=== PATIENT | female | born 1960 | race Caucasian/White ===

== ENCOUNTER 2020-04-02 08:45 | Emergency (ER) | payer BC, SELFPAY ==
--- NOTE | ~2020-04-02 | XR_ITS ---
EXAMINATION: XR knee RT min 4V DATE: 04/02/2020 09:17 INDICATION: Right knee pain post fall down stairs TECHNIQUE: Anteroposterior, oblique, sunrise and crosstable lateral views of the right knee were obta ined COMPARISON: None. FINDINGS: Alignment is normal. No fracture. Joint spaces appear normal. No joint effusion/layering lipohemarth rosis. Soft tissues are unremarkable. IMPRESSION: 1. Negative right knee radiographs. Reviewed, dictated and finalized at location A.
[2020-04-02 08:51] VITALS: BP 143/79; PULSE 64; RESP 19; TEMP 36.5; O2SAT 100
--- NOTE | 2020-04-02 09:04 | PC.NURSE ---
Pt to XRAY via stretcher.
--- NOTE | 2020-04-02 09:53 | ED.GENADULT ---
HPI - General Adult General Chief complaint: Extremity Injury, Lower Stated complaint: knee injury Time Seen by Provider: 04/02/20 08:58 Source: patient Mode of arrival: ambulatory Limitations: no limitations History of Present Illness HPI narrative: 59-year-old with a history of hypertension here with complaints of right knee pain since last 2 days. Patient states that she fell near the swimming pool at her home 2 days ago ever since then been having pain in the right knee. She denies any other injuries. Onset (ago): day(s) (2) Location: right and lower extremity Radiation: non-radiation Severity: moderate Severity scale (1-10): 4 Quality: aching Relieving factors: rest Exacerbating factors: movement Associated symptoms: denies other symptoms Related Data Allergies Allergy/AdvReac Type Severity Reaction Status Date / Time No Known Allergies Allergy Unknown Verified 04/02/20 09:02 Review of Systems Review of Systems: All systems reviewed & are unremarkable except as noted in HPI and below Constitutional: Constitutional: Reports no additional constitutional complaints Eyes: Eyes: Reports no additional eye complaints ENT: Reports system reviewed and no additional complaints, except as documented Cardiovascular: Cardiovascular: Reports no additional cardiovascular complaints Respiratory: Respiratory: Reports no additional respiratory complaints Gastrointestinal: Gastrointestinal: Reports as per HPI Musculoskeletal: Musculoskeletal: Reports no additional musculoskeletal complaints PMFSH Past Medical History Medical History Diverticulitis large intestine Diverticulosis Fatty liver Hypothyroidism (acquired) Surgical History Surgical History H/O colonoscopy Family History Family History Father Family history of lung cancer Family history of rheumatoid arthritis Cerebrovascular accident Mother Family history of malignant neoplasm of breast in first degree relative Family history of thyroid disease Social History Social History (Updated 10/26/19 @ 14:10 by Corinna Rodrigues) Social History: Smoking status: Never smoker Second hand tobacco smoke exposure: No Alcohol intake: current Substance use: never Substance use type: does not use Gender identity (if verbalized by the patient): Female Exam Narrative: Exam Narrative: GENERAL: Well-appearing, well-nourished, and in no acute distress. HEAD: Normocephalic, atraumatic. EYES: PERRLA and EOMI. ENT: Nares clear, no rhinorrhea or epistaxis. Mucous membranes moist. NECK: Supple. CHEST: Clear to auscultation. No respiratory distress. HEART: Regular rate and rhythm. No murmur heard. Normal peripheral pulses.. EXTREMITIES: Normal range of motion. No edema. Tenderness in the medial aspect of the right knee. No joint effusion. SKIN: Warm, dry, no rash. NEURO: No focal deficits. Alert and oriented x3. PSYCH: Normal mood and affect. Course Course Emergency Course: Inform patient about her x-ray findings. Advised Raji wrap. Patient states that she did not want any pain medications recommended her to take ibuprofen or naproxen for pain. Vital Signs Vital signs: Vital Signs Temperature 36.5 C 04/02/20 08:51 Pulse Rate 64 04/02/20 08:51 Respiratory Rate 19 04/02/20 08:51 Blood Pressure 143/79 H 04/02/20 08:51 Pulse Oximetry 100 04/02/20 08:51 Temperature 36.5 C 04/02/20 08:51 Pulse Rate 64 04/02/20 08:51 Respiratory Rate 19 04/02/20 08:51 Blood Pressure 143/79 H 04/02/20 08:51 Pulse Oximetry 100 04/02/20 08:51 Medical Decision Making Vital Signs Vital Signs: Vital Signs Temperature 36.5 C 04/02/20 08:51 Pulse Rate 64 04/02/20 08:51 Respiratory Rate 19 04/02/20 08:51 Blood Pressure 143/79 H 04/02/20 08:51 Pulse Ox
[2020-04-02 10:23] VITALS: BP 148/86; PULSE 72; RESP 14; O2SAT 99
== END 2020-04-02 10:24 | disposition home or self-care (01) ==
PROVIDERS: Emergency Provider Family Medicine; PCP Family Medicine
DX: S83.91XA Sprain of unspecified site of right knee, initial encounter (principal); I10 Essential (primary) hypertension; K57.90 Diverticulosis of intestine, part unspecified, without perforation or abscess without bleeding; E03.9 Hypothyroidism, unspecified; W19.XXXA Unspecified fall, initial encounter
CPT/HCPCS: 73564; 99283

== ENCOUNTER 2021-01-26 07:25 | Outpatient (CLI) | payer BC, SELFPAY ==
--- NOTE | ~2021-01-26 | MM_ITS ---
EXAMINATION: MM screening amanda BI w tamara HISTORY: Screening TECHNIQUE: Craniocaudal and mediolateral oblique 3-D tomosynthesis images were obtained and synthetic 2-D images were generated. CAD analysis was submitted and interpreted. COMPARISON: Comparison to multiple prior studies sequentially, with oldest reviewed study dated 06/27. BREAST PARENCHYMAL COMPOSITION: There are scattered areas of fibroglandular density. FINDINGS: There is a new mass in the lower inner quadrant of the left breast anteriorly. There are de veloping asymmetries in the upper outer quadrant of the right breast. IMPRESSION: 1. New left breast mass. Developing right breast asymmetries. 2. Additional mammographic views and possible breast ultrasound are recommended. BI-RADS Category 0: Incomplete: Needs additional imaging evaluation. Reviewed, dictated and finalized at location A. IMPRESSION: 1. New left breast mass. Developing right breast asymmetries. 2. Additional mammographic views and possible breast ultrasound are recommended . BI-RADS Category 0: Incomplete: Needs additional imaging evaluation.
== END 2021-01-26 07:26 | disposition home or self-care (01) ==
LOC: ANHIMG 07:27
PROVIDERS: PCP Family Medicine; Visit Provider Obstetrics & Gynecology
DX: Z12.31 Encounter for screening mammogram for malignant neoplasm of breast (principal); R92.8 Other abnormal and inconclusive findings on diagnostic imaging of breast
CPT/HCPCS: 77063; 77067

== ENCOUNTER 2021-02-24 12:41 | Emergency (ER) | payer BC, SELFPAY ==
--- NOTE | 2021-02-24 12:47 | ED.URI ---
HPI - URI/Sore Throat General Chief Complaint: Upper Respiratory Infection Stated Complaint: sinus infection Time Seen by Provider: 02/24/21 12:47 Source: patient and RN notes reviewed Mode of arrival: ambulatory Limitations: no limitations History of Present Illness HPI Narrative: 60-year-old female presents to the [facility] with complaints of a headache and right sided facial numbness since Tuesday, 4 days. Facial symmetry noted, denies any chest pain or shortness of breath. No numbness or tingling in extremities. Reports right eye swelling. resent covid vaccine Onset (ago): day(s) (4) Consistency: constant Exacerbating factors: nothing Relieving factors: nothing Related Data Allergies Allergy/AdvReac Type Severity Reaction Status Date / Time No Known Allergies Allergy Unknown Verified 02/24/21 13:27 Review of Systems Review of Systems: All systems reviewed & are unremarkable except as noted in HPI and below Constitutional: Constitutional: Reports no additional constitutional complaints Eyes: Eyes: Reports no additional eye complaints ENT: Reports as per HPI Cardiovascular: Cardiovascular: Reports no additional cardiovascular complaints, Denies chest pain and Denies radiating jaw, neck or arm pain Respiratory: Respiratory: Reports no additional respiratory complaints, Denies cough, Denies dyspnea and Denies wheezing Gastrointestinal: Gastrointestinal: Reports no additional gastrointestinal complaints, Denies abdominal pain, Denies nausea and Denies vomiting Genitourinary: Genitourinary: Reports no additional female genitourinary complaints Musculoskeletal: Musculoskeletal: Reports no additional musculoskeletal complaints Integumentary/Breasts: Skin/Breast: Reports system reviewed and no additional complaints, except as docu Neurologic: Denies confusion, Denies dizziness, Reports headache(s) (right side), Reports numbness (right face) and Denies weakness Psychiatric: Psychiatric: Reports no additional psychiatric complaints [facility] Past Medical History Medical History (Updated 02/24/21 @ 14:05 by Pia Zamudio) Diverticulitis large intestine Diverticulosis Fatty liver Hypothyroidism (acquired) Surgical History Surgical History H/O colonoscopy Family History Family History Father Family history of lung cancer Family history of rheumatoid arthritis Cerebrovascular accident Mother Family history of malignant neoplasm of breast in first degree relative Family history of thyroid disease Social History Social History Social History: Smoking status: Never smoker Second hand tobacco smoke exposure: No Alcohol intake: current Substance use: never Substance use type: does not use Gender identity (if verbalized by the patient): Female Exam Const: General: healthy appearing, no acute distress and alert Nutritional Appearance: well nourished Orientation/consciousness: patient oriented x3 Limitations: no limitations HENMT: Head: normal to inspection Ears: external ears normal General nose exam: Normal external nose present and Normal nares present Mouth: Yes moist mucous membranes Throat: posterior oropharynx normal and uvula midline Eyes: Conjunctivae: conjunctivae normal Pupils: Equal, round and reactive pupils present Direct Ophthalmoscopy: no photophobia Neck: Neck: normal visual inspection and no lymphadenopathy Chest: Chest palpation & inspection: normal inspection of the chest Resp: Effort & Inspection: normal respiratory effort and no use of accessory muscles Auscultation: clear to auscultation bilaterally, no crackles, no rales, no rhonchi and no wheezes Cardio: Rate: regular rate Rhythm: regular rhythm Neuro: General: patient oriented x3, gait normal, tone normal, moves all extremities, no meningeal signs
[2021-02-24 12:52] VITALS: BP 132/80; PULSE 59; RESP 20; TEMP 36.6; O2SAT 100
--- NOTE | 2021-02-24 12:58 | PC.NURSE ---
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
== END 2021-02-24 13:00 | disposition short-term general hospital (02) ==
PROVIDERS: Emergency Provider Nurse Practitioner
DX: R51.9 Headache, unspecified (principal); R20.0 Anesthesia of skin; E03.9 Hypothyroidism, unspecified
CPT/HCPCS: 99212; G0463

== ENCOUNTER 2021-02-24 13:15 | Emergency (ER) | payer BC, SELFPAY ==
--- NOTE | ~2021-02-24 | CT_ITS ---
EXAMINATION: CT brain wo con EXAM DATE: 02/24/2021 13:45 INDICATION: Headache, right facial paresthesia. TECHNIQUE: Spiral CT of the head was performed without contrast. Axial, coronal and sagittal images were reviewed. The dose-length product (DLP) for this examination was 529.67 mGy-cm. The exposure w as tailored according to patient size, and iterative reconstruction (ASIR) was used as additional dos e reduction technique. There is no prior study for comparison. FINDINGS: There is no acute intraparenchymal hemorrhage. No evidence of intraparenchymal brain mass lesion. No evidence of acute infarction. There is no mass effect or midline shift. The ventricles are normal in size. There are no extra-axial collections. There are no acute calvarial fractures. T he orbits are unremarkable. Soft tissue is unremarkable. Minimal ethmoid mucoperiosteal thickening. IMPRESSION: 1. Unremarkable head CT examination. Reviewed, dictated and finalized at location B.
[2021-02-24 13:19] VITALS: BP 141/82; PULSE 67; RESP 16; O2SAT 100
[2021-02-24 13:26] VITALS: PULSE 58
[2021-02-24 13:58] LABS: Basophils Absolute Auto 0.1 K/mm3 (0.0-0.1); Basophils Percent Auto 1.3 % (0.2-1.2); Eosinophils Absolute Auto 0.2 K/mm3 (0-0.3); Eosinophils Percent Auto 3.9 % (0-4.4); Hematocrit 43.8 % (37.0-47.0); Hemoglobin 14.9 g/dL (12.0-15.0); Immature Granulocyte Absolute 0.02 K/mm3 (0.00-0.031); Immature Granulocyte Percent A 0.4 % (0-0.5); Lymphocytes Absolute Auto 1.29 K/mm3 (0.9-3.2); Lymphocytes Percent Auto 27.7 % (18.3-44.2); Mean Corpuscular Hemoglobin 30.6 pg (26-34); Mean Corpuscular Volume 89.9 fl (80-100); Mean Platelet Volume 9.9 fl (7.4-10.4); Monocytes Absolute Auto 0.5 K/mm3 (0.1-0.6); Monocytes Percent Auto 11.6 % (2.6-8.5); Neutrophils Absolute Auto 2.6 K/mm3 (1.3-6.7); Neutrophils Percent Auto 55.1 % (45.5-73.1); Platelet Count Result 295 k/mm3 (150-375); Red Blood Count 4.87 M/mm3 (4.2-5.4); Red Cell Distribution Width 12.6 % (11.5-14.5); White Blood Count 4.7 K/mm3 (4.5-10.0)
[2021-02-24 14:09] LABS: Anion Gap 10 mmol/L (8-16); Blood Urea Nitrogen 12 mg/dL (7-17); Calcium 9.1 mg/dL (8.4-10.2); Carbon Dioxide 23 mmol/L (22-30); Chloride 105 mmol/L (98-107); Estimated CRCL calculation 63 ml/min; Estimated Glomerular Filt Rate > 60; Glucose 89 mg/dL (65-105); Sodium 138 mmol/L (137-145)
--- NOTE | 2021-02-24 15:19 | ED.GENADULT ---
HPI - General Adult General Chief complaint: Unspecified Stated complaint: facial numbness Time Seen by Provider: 02/24/21 13:19 Source: patient Mode of arrival: ambulatory Limitations: no limitations History of Present Illness HPI narrative: 60-year-old with with no major medical problems here with complaints of headache and right facial numbness around the orbit area for past 1 day. She states that she went to urgent care and was later referred her to the ER. She also mentions her right eyelid is swollen. She denies any nausea or vomiting or double vision at this time. Onset (ago): day(s) (1) Location: face (Right orbital area) Radiation: non-radiation Severity: mild Pain Consistency: constant Relieving factors: none Exacerbating factors: none Associated symptoms: denies other symptoms Related Data Allergies Allergy/AdvReac Type Severity Reaction Status Date / Time No Known Allergies Allergy Unknown Verified 02/24/21 13:27 Review of Systems Review of Systems: All systems reviewed & are unremarkable except as noted in HPI and below Constitutional: Constitutional: Reports no additional constitutional complaints Eyes: Eyes: Reports as per HPI ENT: Reports system reviewed and no additional complaints, except as documented Cardiovascular: Cardiovascular: Reports no additional cardiovascular complaints Respiratory: Respiratory: Reports no additional respiratory complaints Gastrointestinal: Gastrointestinal: Reports no additional gastrointestinal complaints PMFSH Past Medical History Medical History (Updated 02/24/21 @ 15:29 by Grayson Perez MD) Diverticulitis large intestine Diverticulosis Fatty liver Hypothyroidism (acquired) Surgical History Surgical History H/O colonoscopy Family History Family History Father Family history of lung cancer Family history of rheumatoid arthritis Cerebrovascular accident Mother Family history of malignant neoplasm of breast in first degree relative Family history of thyroid disease Social History Social History Social History: Smoking status: Never smoker Second hand tobacco smoke exposure: No Alcohol intake: current Substance use: never Substance use type: does not use Gender identity (if verbalized by the patient): Female Exam Narrative: Exam Narrative: GENERAL: Well-appearing, well-nourished, and in no acute distress. HEAD: Normocephalic, atraumatic. EYES: PERRLA and EOMI. right lower eyelid is slightly edematous. No evidence of any stye or drainage. ENT: Nares clear, no rhinorrhea or epistaxis. Mucous membranes moist. NECK: Supple. CHEST: Clear to auscultation. No respiratory distress. HEART: Regular rate and rhythm. No murmur heard. Normal peripheral pulses. ABDOMEN: Soft, nontender, nondistended, normal active bowel sounds. EXTREMITIES: Normal range of motion. No edema. SKIN: Warm, dry, no rash. NEURO: No focal deficits. Alert and oriented x3. PSYCH: Normal mood and affect. Course Course Emergency Course: Inform patient about her lab work, CT findings I do not see anything acute or could be a possibility of complex migraine which could cause numbness however patient is not convinced that it is a migraine. I did discuss with Dr. Salazar. Patient can be followed up in his office. Vital Signs Vital signs: Vital Signs Pulse Rate 67 02/24/21 13:19 Respiratory Rate 16 02/24/21 13:19 Blood Pressure 141/82 H 02/24/21 13:19 Pulse Oximetry 100 02/24/21 13:19 Pulse Rate 58 L 02/24/21 13:26 Respiratory Rate 16 02/24/21 13:19 Blood Pressure 141/82 H 02/24/21 13:19 Pulse Oximetry 100 02/24/21 13:19 Medical Decision Making Vital Signs Vital Signs: Vital Signs Pulse Rate 67 02/24/21 13:19 Respiratory Rate 16 02/24/21 13:19 Blood Pr
[2021-02-24 15:46] VITALS: BP 163/89; PULSE 56; RESP 15; O2SAT 100
== END 2021-02-24 15:47 | disposition home or self-care (01) ==
PROVIDERS: Emergency Provider Family Medicine
DX: R20.2 Paresthesia of skin (principal); K57.30 Diverticulosis of large intestine without perforation or abscess without bleeding; E03.9 Hypothyroidism, unspecified
CPT/HCPCS: 36415; 70450; 80048; 85025; 99284

== ENCOUNTER 2021-08-17 10:22 | Emergency (ER) | payer BC, SELFPAY ==
[2021-08-17 10:30] VITALS: BP 120/73; PULSE 65; RESP 16; TEMP 36.9; O2SAT 97
--- NOTE | 2021-08-17 10:59 | ED.FEMALEGU ---
HPI - Female Genitourinary General Chief complaint: Urogenital-Female Stated complaint: back and abdominal pain,dark urine Time Seen by Provider: 08/17/21 10:45 Source: patient and RN notes reviewed Mode of arrival: ambulatory Limitations: no limitations History of Present Illness HPI Narrative: Patient presents today complaining of a 2-day history of left flank pain, malodorous and dark urine, dysuria. Denies frequency or abdominal pain. She currently rates pain 3/10 and has been taking Advil with mild relief. No recent antibiotic use. MD elicited complaint: dysuria Related Data Allergies Allergy/AdvReac Type Severity Reaction Status Date / Time No Known Allergies Allergy Unknown Verified 08/17/21 10:31 Review of Systems Review of Systems: CONSTITUTIONAL: Denies body aches, fever, chills, or sweats. EYES: Denies visual changes, redness, or discharge. ENT: Denies rhinorrhea, congestion, sore throat, or otalgia. CARDIOVASCULAR: Denies chest pain, palpitations, or edema. RESPIRATORY: Denies cough or dyspnea. GASTROINTESTINAL: Denies abdominal pain, nausea, vomiting, or diarrhea. GENITOURINARY: Denies hematuria.+ Dysuria, dark and malodorous urine, left flank pain SKIN: Denies rash, itching, or wounds. MUSCULOSKELETAL: Denies back pain, joint pain, or myalgia. NEUROLOGIC: Denies headache, numbness, tingling, or weakness. PSYCH: Denies depression or anxiety. [facility] Past Medical History Medical History (Updated 08/17/21 @ 11:02 by Jolie Andrea, ROSALBA, BC) Diverticulitis large intestine Diverticulosis Fatty liver Hypothyroidism (acquired) Surgical History Surgical History H/O colonoscopy Family History Family History Father Family history of lung cancer Family history of rheumatoid arthritis Cerebrovascular accident Mother Family history of malignant neoplasm of breast in first degree relative Family history of thyroid disease Social History Social History Social History: Smoking status: Never smoker Second hand tobacco smoke exposure: No Alcohol intake: current Alcohol use details: Occasionally Substance use: never Substance use type: does not use Gender identity (if verbalized by the patient): Female Sexual Orientation (if Verbalized by the Patient): Straight or Heterosexual Comments At time of signature, I have reviewed and agree with nursing past medical, surgical, social and family history unless otherwise noted. Please see nursing chart for further information. There is no relevant family history pertinent to the presenting complaint Exam Narrative: GENERAL: Well-appearing, well-nourished, and in no acute distress. HEAD: Normocephalic, atraumatic. EYES: EOMI. No redness or drainage. Conjunctivae normal. ENT: Mucous membranes pink and moist. NECK: Normal AROM. CHEST: No respiratory distress. Clear to auscultation. HEART: Regular rate and rhythm. No murmur appreciated. Normal peripheral pulses. ABDOMEN: Soft, nontender, nondistended, normal active bowel sounds.-CVAT MUSCULOSKELETAL: No bony tenderness. EXTREMITIES: Normal range of motion. No edema. SKIN: Warm, dry, no rash. Capillary refill normal. Normal skin turgor. NEURO: No focal deficits. Alert and oriented x3. Gait steady. PSYCH: Normal affect. No signs of depression or anxiety. Course Vital Signs Vital signs: Vital Signs Temperature 98.4 F 08/17/21 10:30 Pulse Rate 65 08/17/21 10:30 Respiratory Rate 16 08/17/21 10:30 Blood Pressure 120/73 08/17/21 10:30 Pulse Oximetry 97 08/17/21 10:30 Temperature 98.4 F 08/17/21 10:30 Pulse Rate 65 08/17/21 10:30 Respiratory Rate 16 08/17/21 10:30 Blood Pressure 120/73 08/17/21 10:30 Pulse Oximetry 97 08/17/21 10:30 Reviewed [facility] - Fem
== END 2021-08-17 11:06 | disposition home or self-care (01) ==
PROVIDERS: Emergency Provider Nurse Practitioner; PCP Family Medicine
DX: N30.01 Acute cystitis with hematuria (principal); E03.9 Hypothyroidism, unspecified; K76.0 Fatty (change of) liver, not elsewhere classified
CPT/HCPCS: 81003; 87086; 87088; 99213; G0463

== ENCOUNTER 2022-03-22 10:43 | Outpatient (CLI) | payer BC, SELFPAY ==
--- NOTE | ~2022-03-22 | XR_ITS ---
EXAMINATION: XR chest 2V DATE: 03/22/2022 11:00 INDICATION: Cough TECHNIQUE: PA and lateral views of the chest are obtained. COMPARISON: None available FINDINGS: The lungs are free of acute opacities. There is no pleural effusion or pneumothorax. The ca rdiomediastinal silhouette is normal. There is mild thoracic spondylosis. IMPRESSION: 1. No acute cardiopulmonary abnormality. Reviewed, dictated and finalized at location A.
== END 2022-03-22 10:44 | disposition home or self-care (01) ==
PROVIDERS: PCP Family Medicine; Visit Provider Nurse Practitioner Gerontology
DX: R05.9 Cough, unspecified (principal)
CPT/HCPCS: 71046

== ENCOUNTER 2022-12-28 10:33 | Outpatient (CLI) | payer BC, SELFPAY ==
--- NOTE | ~2022-12-28 | XR_ITS ---
EXAMINATION: XR chest 2V Exam Date/Time: 12/28/2022 10:40 CDT HISTORY: COUGH, CONGESTION, HX BLADDER CA, Comparison: 03/22/2022. RESULT: Lines, tubes, and devices: None. Lungs and pleura: Ill-defined centrilobular nodular opacities in the right upper lung. Cardiomediastinal silhouette: Stable. Other: No acute osseous or upper abdominal finding. IMPRESSION: Right upper lung opacities may represent infectious airways disease. Recommend radiographic follow-up several weeks after the conclusion of symptoms/appropriate therapy to confirm resolution. Reviewed, dictated and finalized at location K. IMPRESSION: Right upper lung opacities may represent infectious airways disease. Recommend radiographic follow-up several weeks after the conclusion of symptoms/appropria te therapy to confirm resolution.
== END 2022-12-28 10:34 | disposition home or self-care (01) ==
PROVIDERS: PCP Family Medicine; Visit Provider Nurse Practitioner Gerontology
DX: R05.9 Cough, unspecified (principal); R91.8 Other nonspecific abnormal finding of lung field
CPT/HCPCS: 71046

== ENCOUNTER 2023-01-11 14:47 | Outpatient (CLI) | payer BC, SELFPAY ==
--- NOTE | ~2023-01-11 | XR_ITS ---
EXAMINATION: XR chest 2V 01/11/2023 15:13 INDICATION: Abnormal findings PROCEDURE: PA and lateral views of the chest COMPARISON: 12/28/2022 FINDINGS: The lungs are clear. The cardiomediastinal silhouette is within normal limits. There are no pleural effusions. There is no pneumothorax suspected. IMPRESSION: 1: NO ACUTE CARDIOPULMONARY DISEASE. Reviewed, dictated and finalized at location A.
== END 2023-01-11 14:48 | disposition home or self-care (01) ==
PROVIDERS: PCP Family Medicine; Visit Provider Nurse Practitioner Gerontology
DX: J40 Bronchitis, not specified as acute or chronic (principal); R93.89 Abnormal findings on diagnostic imaging of other specified body structures
CPT/HCPCS: 71046

== ENCOUNTER 2023-02-03 14:53 | Emergency (ER) | payer BC, SELFPAY ==
[2023-02-03 15:00] VITALS: BP 135/89; PULSE 96; RESP 16; TEMP 36.8; O2SAT 98
--- NOTE | 2023-02-03 15:11 | ED.URI ---
HPI - URI/Sore Throat General Chief Complaint: Upper Respiratory Infection Stated Complaint: Headache,Congestion Time Seen by Provider: 02/03/23 15:11 Source: patient, RN notes reviewed and old records reviewed Mode of arrival: ambulatory Limitations: no limitations History of Present Illness HPI Narrative: 62 [facility] complaints of facial pressure, frontal headache, nasal congestion and drainage for the past 4 days. Patient reports that she has no sore throat, cough, fevers or any nausea or vomiting or diarrhea. Patient reports that she was treated about 4 weeks previously for illness also. Patient denies any feeling of shortness of breath or any wheezing. Patient reports history of yearly to biyearly sinus infection.. Patient has been taking Advil and nasal spray for her symptoms. MD elicited complaint: rhinorrhea, nasal congestion and sinus pain Pertinent past history: sinusitis Onset (ago): day(s) (4) Pain scale (0-10): 6 Able to tolerate fluids by mouth: Yes Treatments prior to arrival: ibuprofen and other (nasal spray) Related Data Home Medications Medication Instructions Recorded Confirmed metformin 500 mg tablet,extended See Rx Instructions .Route .COMPLEX 02/03/23 02/03/23 release 24 hr prednisone 10 mg tablet 10 mg PO DAILY 02/03/23 02/03/23 progesterone micronized 100 mg 100 mg PO DAILY 02/03/23 02/03/23 capsule Allergies Allergy/AdvReac Type Severity Reaction Status Date / Time No Known Allergies Allergy Unknown Verified 02/03/23 15:16 Review of Systems Review of Systems: CONSTITUTIONAL: Denies malaise, chills, sweats, or fever. EYES: Denies visual changes, redness, or discharge. ENT: Reports rhinorrhea, congestion, sinus pain,no otalgia and no sore throat. CARDIOVASCULAR: Denies chest pain, palpitations, or edema. RESPIRATORY: Reports dry cough.? Denies dyspnea. GASTROINTESTINAL: Denies abdominal pain, nausea, vomiting, diarrhea SKIN: Denies rash or itching. MUSCULOSKELETAL: Denies myalgia. NEUROLOGIC: reports headache. All systems reviewed & are unremarkable except as noted in HPI and below PMFSH Past Medical History Medical History (Updated 02/03/23 @ 15:47 by Jessie Salinas NP) Bladder cancer Diverticulitis large intestine Diverticulosis Fatty liver Hypothyroidism (acquired) Sinusitis Surgical History Surgical History H/O colonoscopy Family History Family History Father Family history of lung cancer Family history of rheumatoid arthritis Cerebrovascular accident Mother Family history of malignant neoplasm of breast in first degree relative Family history of thyroid disease Social History Social History Social History: Smoking status: Never smoker Second hand tobacco smoke exposure: No Alcohol intake: current Alcohol use details: Occasionally Substance use: never Substance use type: does not use Living arrangements: with family Occupation/Education: occupation Gender identity (if verbalized by the patient): Female Sexual Orientation (if Verbalized by the Patient): Straight or Heterosexual Comments At time of signature, agree with nursing past medical, surgical, social and family history. There is no relevant family history pertinent to the presenting complaint Exam Narrative: GENERAL: Well-appearing, well-nourished, and in no acute distress. HEAD: Normocephalic EYES: PERRLA, conjunctivae clear ENT: Nares clear, turbinates edematous and erythematous, clear discharge, sinus pressure, Mucous membranes moist. TM pearly gary with dull light reflex bilaterally; no tragal tenderness. Oropharynx erythematous without lesions. Tonsils not enlarged and without exudate, no drooling, no hoarseness, no trismus, uvula midl
== END 2023-02-03 15:38 | disposition home or self-care (01) ==
PROVIDERS: Emergency Provider Registered Nurse; PCP Family Medicine
DX: J01.41 Acute recurrent pansinusitis (principal); E03.9 Hypothyroidism, unspecified; K76.0 Fatty (change of) liver, not elsewhere classified; Z85.51 Personal history of malignant neoplasm of bladder
CPT/HCPCS: 99213; G0463

== ENCOUNTER 2023-06-06 11:27 | Emergency (ER) | payer BC, SELFPAY ==
--- NOTE | ~2023-06-06 | XR_ITS ---
XR hand RT min 3V 06/06/2023 12:03 INDICATION: Right hand pain PROCEDURE: 3 views right hand COMPARISON: No prior studies for comparison. FINDINGS: Fracture, dislocation or subluxation is not identified. 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 There are mild degenerative changes of the distal interphalangeal joints. No erosive changes. The soft tissues appear within normal limits. No foreign bodies are leeann ntified. IMPRESSION: 1: NO ACUTE BONE OR JOINT ABNORMALITY IDENTIFIED. Reviewed, dictated and finalized at location B.
[2023-06-06 11:48] VITALS: BP 153/93; PULSE 77; RESP 16; TEMP 36.2; O2SAT 98
--- NOTE | 2023-06-06 11:57 | ED.UPPEXIN ---
HPI - Extremity Injury (Upper) General Chief Complaint: Extremity Injury, Upper Stated Complaint: rt hand injury Time Seen by Provider: 06/06/23 12:03 Source: patient, RN notes reviewed and old records reviewed Mode of arrival: ambulatory Limitations: no limitations History of Present Illness HPI narrative: 62-year-old female presents to the [facility] with complaints of right hand pain. Patient states Tuesday night she got her hand caught in a gait. Swelling and bruising noted to the dorsal aspect of hand. Tenderness over 3rd metacarpal. Full range of motion. Sensation intact capillary refill under 2 seconds in all 5 fingers. Onset (ago): day(s) (2) Related Data Home Medications Medication Instructions Recorded Confirmed progesterone micronized 100 mg 100 mg PO DAILY 02/03/23 06/06/23 capsule Allergies Allergy/AdvReac Type Severity Reaction Status Date / Time No Known Allergies Allergy Unknown Verified 06/06/23 12:10 Review of Systems Review of Systems: All systems reviewed & are unremarkable except as noted in HPI and below Constitutional: Constitutional: Reports no additional constitutional complaints Eyes: Eyes: Reports no additional eye complaints ENT: Reports system reviewed and no additional complaints, except as documented Cardiovascular: Cardiovascular: Reports no additional cardiovascular complaints, Denies chest pain and Denies dyspnea Respiratory: Respiratory: Reports no additional respiratory complaints, Denies chest congestion, Denies cough and Denies dyspnea Gastrointestinal: Gastrointestinal: Reports no additional gastrointestinal complaints, Denies abdominal pain, Denies nausea and Denies vomiting Musculoskeletal: Musculoskeletal: Reports as per HPI, Reports arthralgias and Reports joint swelling Integumentary/Breasts: Skin/Breast: Reports system reviewed and no additional complaints, except as docu Neurologic: Reports system reviewed and no additional complaints, except as documented Psychiatric: Psychiatric: Reports no additional psychiatric complaints Allergic/Immunologic: Allergic/Immunologic: Reports no additional allergic/immunologic complaints PMFSH Past Medical History Medical History Bladder cancer Diverticulitis large intestine Diverticulosis Fatty liver Hypothyroidism (acquired) Sinusitis Surgical History Surgical History H/O colonoscopy Family History Family History Father Family history of lung cancer Family history of rheumatoid arthritis Cerebrovascular accident Mother Family history of malignant neoplasm of breast in first degree relative Family history of thyroid disease Social History Social History Social History: Smoking status: Never smoker Second hand tobacco smoke exposure: No Alcohol intake: current Alcohol use details: Occasionally Substance use: never Substance use type: does not use Lack of Transportation: No Lack of Food: Never True Current Housing: I Have Housing Concerned About Future Housing: No Difficulty Paying Gas/Electric Bills: No Difficulty Paying for Meds: No Currently Unemployed: No Education: Decline to Answer Difficulty w/ Childcare or Family Care: No Living arrangements: with family Occupation/Education: occupation Gender identity (if verbalized by the patient): Female Sexual Orientation (if Verbalized by the Patient): Straight or Heterosexual Comments At the time of my signature, I reviewed and agree with the nursing past medical, surgical, social, and family history. There is no relevant family history pertinent to the patient complaint. Exam Const: General: cooperative, healthy appearing, comfortable, no acute distress, well developed, alert and well
== END 2023-06-06 12:38 | disposition home or self-care (01) ==
PROVIDERS: Emergency Provider Nurse Practitioner; PCP Family Medicine
DX: S60.221A Contusion of right hand, initial encounter (principal); X58.XXXA Exposure to other specified factors, initial encounter; E03.9 Hypothyroidism, unspecified; K76.0 Fatty (change of) liver, not elsewhere classified; Z85.51 Personal history of malignant neoplasm of bladder
CPT/HCPCS: 73130; 99213; G0463

== ENCOUNTER 2024-06-28 07:15 | Outpatient (CLI) | payer BC, SELFPAY ==
--- NOTE | ~2024-06-28 | MM_ITS ---
EXAMINATION: MM screening amanda BI w tamara HISTORY: Screening TECHNIQUE: Craniocaudal and mediolateral oblique 3-D tomosynthesis images were obtained and synthetic 2-D images were generated. CAD analysis was submitted and interpreted. COMPARISON: Comparison to multiple prior studies sequentially, with oldest reviewed study dated 08/26. BREAST PARENCHYMAL COMPOSITION: Not dense: There are scattered areas of fibroglandular density. FINDINGS: There is no evidence of suspicious mass, calcification, or architectural distortion to sugg est malignancy in either breast. There has been no suspicious interval change. IMPRESSION: 1. No mammographic evidence of malignancy. 2. Recommend routine screening mammography in one year. BI-RADS Category 1: Negative Reviewed, dictated and finalized at location B.
== END 2024-06-28 07:16 | disposition home or self-care (01) ==
PROVIDERS: PCP Family Medicine; Visit Provider Student in an Organized Health Care Education/Training Program
DX: Z12.31 Encounter for screening mammogram for malignant neoplasm of breast (principal)
CPT/HCPCS: 77063; 77067